=== PATIENT | female | born 1960 | race Two or more races ===

== ENCOUNTER 2020-08-19 09:31 | Outpatient (CLI) | payer OTHER ==
[~2020-08-19 09:31] MED LIST: ATENOLOL50 MG; ATROVENT HFA12.9 GM IH; DIOVAN40 MG; GLUCOPHAGE XR750 MG; ZITHROMAX TRI-500 MG PO; ZOCOR40 MG; ZYRTEC10 MG PO; [UNRECOGNIZED DRUG - OTHER]
== END 2020-08-19 09:52 | disposition home or self-care (01) ==
LOC: MRI 09:31
PROVIDERS: ATTEND Physical Medicine & Rehabilitation
DX: G44.011 Episodic cluster headache, intractable (principal); G93.9 Disorder of brain, unspecified
CPT/HCPCS: 70551